=== PATIENT | female | born 1950 | race Caucasian/White ===

== ENCOUNTER 2022-09-21 15:02 | Emergency (ER) | payer MEDICARE, SELFPAY ==
[2022-09-21 15:05] VITALS: BP 116/74; PULSE 109; RESP 18; TEMP 36.3; O2SAT 94; BMI 29.1
--- NOTE | 2022-09-21 15:31 | CRLHL7_ITS ---
For Patients: As a result of the Century Cures Act, medical imaging exams and procedure reports are released immediately into your electronic medical record. You may view this report before your referring provider. If you have questions, please contact your health care provider. Indication: Fall Comparison: None available. Technique: Standing AP, lateral, and sunrise views of the right knee were obtained Findings: There is no displaced fracture or dislocation. Moderate to severe degenerative changes worse in the medial and patellofemoral compartments with loss of joint space and marginal osteophyte formation. There is moderate tibial spine spurring. There is a small suprapatellar joint effusion. There is mild prepatellar soft tissue swelling. Impression: Moderate to severe tricompartmental degenerative changes worst in the medial and patellar compartments with a small suprapatellar joint effusion. Dictated by Marco Delacruz MD @ 09/21/2022 4:28:05 PM (Electronically Signed)
--- NOTE | 2022-09-21 15:37 | CRLHL7_ITS ---
For Patients: As a result of the Century Cures Act, medical imaging exams and procedure reports are released immediately into your electronic medical record. You may view this report before your referring provider. If you have questions, please contact your health care provider. Indication: Fall Comparison: None available. Technique: AP, Lateral, and Oblique views right ankle were obtained Findings: There is displaced fracture of the distal fibula. The ankle mortise is symmetrical. The talar dome is smooth and intact. The joint spaces are otherwise grossly preserved. There is moderate malleolar soft tissue swelling. Impression: Displaced fracture of the distal fibula with moderate malleolar soft tissue swelling. Dictated by Marco Delacruz MD @ 09/21/2022 4:30:44 PM (Electronically Signed)
--- NOTE | 2022-09-21 15:41 | ED.FALL ---
HPI - Fall General Chief Complaint: Fall/Minor Trauma Stated Complaint: Fall Knee and Ankle Injury Time Seen by Provider: 09/21/22 15:03 History of Present Illness HPI Narrative: This 71-year-old female comes in with injury to her right knee and ankle. She fell prior to arrival. She states that she has a hip that loses strength occasionally and this kind of circumstances triggered a fall today. She does have an MRI scheduled for her hip in the next few days. She states that she was eventually able to get up and ambulate. She has some mild tenderness in her knee and some swelling and tenderness over the lateral malleolus of her right ankle. She does not report any other injury. She did not hit her head or have loss of consciousness. Related Data Home Medications Medication Instructions Recorded Confirmed citalopram 40 mg tablet 40 mg PO DAILY 08/07/22 08/07/22 gabapentin 600 mg tablet mg PO 08/07/22 08/07/22 ibuprofen 400 mg tablet mg PO 08/07/22 08/07/22 rosuvastatin 40 mg tablet 40 mg PO DAILY PRN 08/07/22 08/07/22 Previous Rx's Medication Instructions Recorded Cam Walker #1 ea 09/21/22 Crutches- Adult #1 ea 09/21/22 hydrocodone 5 mg-acetaminophen 325 1 tab PO Q4-6H PRN pain #15 tabs 09/21/22 mg tablet Allergies Allergy/AdvReac Type Severity Reaction Status Date / Time No Known Drug Allergies Allergy Verified 09/21/22 15:05 Review of Systems Status of ROS: Reports: 10 or more systems reviewed and unremarkable except as noted in History and below Narrative: Constitutional: No fevers, no weight gain or loss. Eyes: No discharge. No vision changes. HENT: No congestion, no sore throat, no ear pain. Cardiovascular: No chest pain, no palpitations. Respiratory: No shortness of breath, no wheezes, no cough. Gastrointestinal: No abdominal pain, no vomiting, no diarrhea. Genitourinary: No dysuria, no hematuria. Musculoskeletal: Right knee and ankle pain from injury as described above. Skin: No rashes, no pruritis. Neurological: No dizziness, weakness, sensory change, speech change. Endo/Heme/Allergies: No bruising or bleeding. No polydipsia. Pysch: no suicidality, no anxiety, no insomnia. All other systems reviewed and are negative. [facility] Medical History (Updated 09/21/22 @ 17:03 by Basil Almanzar MD) Pneumonia ?J18.9 - Pneumonia, unspecified organism (ICD-10) URI (upper respiratory infection) ?J06.9 - Acute upper respiratory infection, unspecified (ICD-10) Social History Smoking Status: Former smoker Do you use any of these nicotine containing products: E-Cigarettes Second hand tobacco smoke exposure: No How often do you have a drink containing alcohol: 4 or more times a week How many standard drinks containing alcohol do you have on a typical day: 3 or 4 How often do you have six or more drinks on one occasion: Never AUDIT-C Alcohol total score: 5 Non-prescribed substance use: denies use Exam Narrative: Exam Narrative: Constitutional: Well-developed, well-nourished, no acute distress. HEENT: Normocephalic, atraumatic. Neck: Normal range of motion. Nontender. Supple. Heart: Regular. No murmurs. Normal rate. Intact distal pulses. Lungs: Clear to auscultation. No chest discomfort. No wheezes, rhonchi, or rales. Abdomen: Normal bowel sounds. Nontender. No rebound tenderness. Genitalia: Deferred. Back: No midline tenderness. Normal range of motion. Extremities: Small abrasion over the right knee. No effusion or sign of deformity. Right ankle has swelling over the lateral malleolus. No joint effusion or ligament instability. Skin: Intact. No rash. Warm. No erythema or pallor. Neurologic: No altered sensation. No weakness. Alert and oriented. Psychiatric: No suicidality. No anxiety or depression. No insomnia. Nursing notes and vitals signs are reviewed. Const: Vital Signs, click to edit/add: Vital Signs - 24 hr 09/21/22 15:05 Temperature 97.3 F L Pulse Rate [Right Pulse Oximeter] 109 H Respiratory Rate 18 Blood Pressure [Le ft Upper Arm] 116/74 Pulse Oximetry 94 Oxygen Delivery Me thod Room Air Course Vital Signs Vital signs: Initial Vital Signs Temperature 97.3 F L 09/21/22 15:05 Temperature Source Temporal Artery Scan 09/21/22 15:05 Pulse Rate 109 H 09/21/22 15:05 Pulse Rhythm Regular 09/21/22 15:05 Pulse Strength 3+ Normal 09/21/22 15:05 Respiratory Rate 18 09/21/22 15:05 Blood Pressure 116/74 09/21/22 15:05 Blood Pressure Mean 88 09/21/22 15:05 Blood Pressure Position Sitting 09/21/22 15:05 Pulse Oximetry 94 09/21/22 15:05 Oxygen Delivery Method Room Air 09/21/22 15:05 Vital Signs Temperature 97.3 F L 09/21/22 15:05 Pulse Rate 109 H 09/21/22 15:05 Respiratory Rate 18 09/21/22 15:05 Blood Pressure 116/74 09/21/22 15:05 Pulse Oximetry 94 09/21/22 15:05 Oxygen Delivery Method Room Air 09/21/22 15:05 Temperature 97.3 F L 09/21/22 15:05 Pulse Rate 109 H 09/21/22 15:05 Respiratory Rate 18 09/21/22 15:05 Blood Pressure 116/74 09/21/22 15:05 Pulse Oximetry 94 09/21/22 15:05 Oxygen Delivery Method Room Air 09/21/22 15:05 MDM - Fall MDM Narrative Medical decision making narrative: This patient comes in for evaluation of injuries from a fall that occurred prior to arrival. X-ray images are acquired of the right knee and right ankle. The right knee shows no acute findings but the right ankle does have a minimally displaced fracture of the distal fibula. Patient was placed in a Cam walker boot and provided crutches for ambulation. I advised her to follow-up with orthopedic clinic next week. Imaging Data XR R Knee: Radiologist's impression: Moderate to severe tricompartmental degenerative changes worst in the medial and patellar compartments with a small suprapatellar joint effusion. XR R Ankle: Radiologist's impression: Displaced fracture of the distal fibula with moderate malleolar soft tissue swelling. Discharge Plan Discharge Clinical Impression: Ankle fracture, right Patient Disposition: Home, Self-Care Condition: Unchanged Additional Instructions: Wear boot for ambulating. Use crutches as needed. Follow-up with orthopedic clinic. Call [phone] for appointment. Prescriptions: New hydrocodone-acetaminophen 5-325 mg tablet 1 tab PO Q4-6H PRN (Reason: pain) Qty: 15 0RF (DME) Cam Walker Misc See Rx Instructions .ROUTE .MEDSUPPLY Qty: 1 0RF Rx Instructions: As directed (DME) Crutches- Adult Misc See Rx Instructions .ROUTE .MEDSUPPLY Qty: 1 0RF Rx Instructions: As directed No Action rosuvastatin 40 mg tablet 40 mg PO DAILY PRN gabapentin 600 mg tablet PO citalopram 40 mg tablet 40 mg PO DAILY ibuprofen 400 mg tablet PO Follow Up/Referrals: Jodee Yee [Primary Care Provider] - Stand Alone Forms: [employer] Info Instructions
--- NOTE | 2022-09-21 17:53 | ED.NURSE ---
per dr keen stated she was ok to drive herself to home. was fitted with crutches and was able to use the crutches. she will call her children to help.
== END 2022-09-21 17:52 | disposition home or self-care (01) ==
PROVIDERS: Emergency Provider Emergency Medicine Emergency Medical Services; PCP Internal Medicine
DX: S82.891A Other fracture of right lower leg, initial encounter for closed fracture (principal); W18.30XA Fall on same level, unspecified, initial encounter
CPT/HCPCS: 29505; 73562; 73610; 99284; 99285

== ENCOUNTER 2022-10-18 11:53 | Outpatient (CLI) | payer MEDICARE, SELFPAY | END 2022-10-18 11:54 | disposition home or self-care (01) | LOC: AMB 10-19 09:04 | PROVIDERS: PCP Internal Medicine; Visit Provider Family Medicine | DX: R07.81 Pleurodynia (principal) | CPT/HCPCS: A0425; A0429 ==

== ENCOUNTER 2022-10-18 12:25 | Observation (INO) | payer MEDICARE, SELFPAY ==
[2022-10-18] VITALS (12 sets, daily range): BP systolic 109–134; BP diastolic 60–75; PULSE 79–108; RESP 18–24; TEMP 36.6–37.1; O2SAT 90–93; BMI 32.0
--- NOTE | 2022-10-18 12:56 | CRLHL7_ITS ---
For Patients: As a result of the Century Cures Act, medical imaging exams and procedure reports are released immediately into your electronic medical record. You may view this report before your referring provider. If you have questions, please contact your health care provider. INDICATION: Shortness of breath, severe left-sided chest pain. Recent pneumonia.. TECHNIQUE: CT chest PE was acquired with 95 cc Isovue 370 IV contrast. COMPARISON: None. FINDINGS: Heart and vasculature: Contrast opacification of the pulmonary arterial tree is adequate. Small pulmonary embolus identified bridging within the right main pulmonary artery into a right lower lobe segmental branch as well as a right upper lobe segmental branch ().. Heart size within normal limits. Normal caliber ascending thoracic aorta. Mild enlargement of the bilateral pulmonary arteries, can be seen in the setting of pulmonary hypertension. Coronary artery calcifications are noted. Aortic arch calcifications. Lungs and pleura: Left lingular and lower lobe peripheral linear opacities likely atelectasis. Left-sided small pleural effusion with adjacent compressive atelectasis. No pleural thickening, or pneumothorax. Lymph nodes/mediastinum: No mediastinal, hilar, or axillary adenopathy. Prominent left hilar lymph nodes. Chest wall: No masses. Upper abdomen: No acute or significant findings. Small hiatal hernia. Bones: Unremarkable for age. IMPRESSION: Small right-sided pulmonary embolus involving a right lower lobe segmental branch and right upper lobe segmental branch. Left lower lobe linear opacities likely atelectasis and resolving pneumonia. Small left-sided pleural effusion with adjacent compressive atelectasis. Please note that all CT scans at this facility use dose modulation, iterative reconstruction, and/or weight-based dosing when appropriate to reduce radiation dose to as low as reasonably achievable. Dictated by John Briones MD @ 10/18/2022 3:34:07 PM (Electronically Signed)
--- NOTE | 2022-10-18 13:15 | ED.CHESTPAIN ---
HPI - Chest Pain General Date Seen: 10/18/22 Chief Complaint: Shortness of Breath/Dyspnea Stated Complaint: Rib pain Time Seen by Provider: 10/18/22 12:39 Source: patient and EMS Mode of arrival: EMS Limitations: no limitations History of Present Illness HPI narrative: Patient is a 71-year-old female who presents here with left-sided chest discomfort, for the last 2-3 days. She describes over the left side of her chest, radiating from just underneath her breast. Whenever she takes a deep breath in or moves or twists it gets worse, she does not report any falls or injury, she notes that she was in the garden pulling some weeds but does remember anything going on with that. She has been wearing a cast on her right ankle, for the last 4 weeks secondary to an ankle fracture that is being treated non operatively. She does not have a history of previous DVTs pulmonary emboli is on no anticoagulants. She does endorse some pleuritic pain when she takes a deep breath in, there is no radiation to her neck back or shoulders associated with this and she does feel little bit more short of breath. She is not on chronic oxygen, she did have a fever up to 102 last night she took. And a slight cough associated with this she has had no nausea vomiting. She has a past history of heart disease with a previous stent placement number of years ago, is been stable since, denies any exertional dyspnea associated with this. She further does not recognize any swelling of her legs bilaterally. Did not take any Tylenol ibuprofen or any other agents to mitigate the discomfort and came in by ambulance today to be seen. 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 MD complaint: chest pain Pertinent past history: coronary artery disease, prior [place] and [employer] Onset (ago): day(s) (3) Timing of current episode: constant Onset: awoke with symptoms Pain location: left chest Pain radiation: none Severity: severe Quality: sharp Relieving factors: remaining still Exacerbating factors: inspiration, palpation and movement Context: recent immobilization and trauma/injury Associated symptoms: fever and cough Treatment prior to arrival: none Risk Factors Coronary artery disease risk factors: smoking history and family history of CAD before age 50 Pulmonary embolism risk factors: clotting disorder and immobilization Related Data On Oral Contraceptives: No Home Medications Medication Instructions Recorded Confirmed citalopram 40 mg tablet 40 mg PO DAILY 08/07/22 08/07/22 gabapentin 600 mg tablet mg PO 08/07/22 08/07/22 ibuprofen 400 mg tablet mg PO 08/07/22 08/07/22 rosuvastatin 40 mg tablet 40 mg PO DAILY PRN 08/07/22 08/07/22 Previous Rx's Medication Instructions Recorded Cam Walker #1 ea 09/21/22 Crutches- Adult #1 ea 09/21/22 hydrocodone 5 mg-acetaminophen 325 1 tab PO Q4-6H PRN pain #15 tabs 09/21/22 mg tablet Allergies Allergy/AdvReac Type Severity Reaction Status Date / Time No Known Drug Allergies Allergy Verified 10/18/22 12:33 Review of Systems Status of ROS Reports: 10 or more systems reviewed and unremarkable except as noted in History and below [facility] Medical History Pneumonia ?J18.9 - Pneumonia, unspecified organism (ICD-10) URI (upper respiratory infection) ?J06.9 - Acute upper respiratory infection, unspecified (ICD-10) Social History Smoking Status: Former smoker Do you use any of these nicotine containing products: E-Cigarettes Second hand tobacco smoke exposure: No How often do you have a drink containing alcohol: 4 or more times a week How many standard drinks containing alcohol do you have on a typical day: 3 or 4 How often do you have six or more drinks on one occasion: Never AUDIT-C Alcohol total score: 5 Non-prescribed substance use: denies use Exam Narrative Exam Narrative: Patient is in room 5 she appears to be in some mild distress, she is splinting on the left side when she breeze twists or turns. Speaking to me normally in full sentences pupils equal round reactive to light there is no scleral icterus redness TMs are normal oropharynx is normal, cranial nerves 3-12 are normal, neck is supple full range of motion, she has some crackles in her left base on inspiration and expiration. There is no palpable tenderness noted. Over the posterior part of her chest but on the anterior portion from her mid axillary line around to her front is tender just underneath her ribs there is no redness associated with this or any tactile fremitus. Or crunching to suggest subcutaneous at air. Heart sounds are normal, there is no wheezing. Abdomen is soft there is no guarding no past splenomegaly, she has the below leg right circular cast. With no swelling or edema noted. Const Vital Signs, click to edit/add: Vital Signs - 24 hr 10/18/22 12:28 Temperature 98.7 F Pulse Rate [Right Pulse Oximeter] 108 H Respiratory Rate 20 Blood Pressure [Right Forearm] 129/72 Pulse Oximetry 93 Oxygen Delivery Method Room Air Documenting provider has reviewed patient's vital signs: yes Course Course Hospital Course: Discussed with the patient explained the diagnosis to her, I do believe she has a pulmonary embolus the hip appears to be in the right upper lobe but there may be a component left lower lobe that clearly is some pneumonia there. She should have now resolved from the previous pneumonia greater than 2 months ago. There may be a a bit of pulmonary infarction there that were just not seeing within the infiltrate. We will start her on Eliquis, along with the Rocephin 2 g IV here. She is accepted by for hospitalization, secondary to her pain, pulmonary embolism, and pneumonia. Vital Signs Vital signs: Initial Vital Signs Temperature 98.7 F 10/18/22 12:28 Temperature Source Temporal Artery Scan 10/18/22 12:28 Pulse Rate 108 H 10/18/22 12:28 Pulse Rhythm Regular 10/18/22 12:28 Pulse Strength 3+ Normal 10/18/22 12:28 Respiratory Rate 20 10/18/22 12:28 Blood Pressure 129/72 10/18/22 12:28 Blood Pressure Mean 91 10/18/22 12:28 Blood Pressure Position Supine 10/18/22 12:28 Pulse Oximetry 93 10/18/22 12:28 Oxygen Delivery Method Room Air 10/18/22 12:28 Vital Signs Temperature 98.7 F 10/18/22 12:28 Pulse Rate 108 H 10/18/22 12:28 Respiratory Rate 20 10/18/22 12:28 Blood Pressure 129/72 10/18/22 12:28 Pulse Oximetry 93 10/18/22 12:28 Oxygen Delivery Method Room Air 10/18/22 12:28 Temperature 98.7 F 10/18/22 12:28 Pulse Rate 108 H 10/18/22 12:28 Respiratory Rate 20 10/18/22 12:28 Blood Pressure 129/72 10/18/22 12:28 Pulse Oximetry 93 10/18/22 12:28 Oxygen Delivery Method Room Air 10/18/22 12:28 MDM - Chest Pain MDM Narrative Medical decision making narrative: During the evaluation of this patient I considered multiple differential diagnosis is. The life-threatening differential diagnosis include coronary disease/[place], pulmonary embolism, pneumothorax, pneumonia, and aortic dissection. Other differential diagnosis included but were not limited to pericarditis, myocarditis, chest wall pain, GERD, esophageal rupture, rib fracture contusion, pleurisy, as well as other etiologies. Medical Records Data Attestation: I reviewed the patient's medical records. Lab Data Attestation: I reviewed the patient's lab results. Lab results narrative: White count is normal, hemoglobin normal, platelet count is very low at 68. Consistent with her thrombocytopenia, she tells me she usually runs between 50 and 88, D-dimer is elevated at 1.56, electrolytes are all normal. Glucose elevated at 129-triple screen for COVID influenza and RSV. Point of care troponin 0.1 . Labs: Lab Results 10/18/22 10/18/22 10/18/22 Range/Units 12:56 13:09 13:25 WBC 8.28 (4.50-11.00) K/uL RBC 4.23 (4.00-5.20) m/uL Hgb 13.8 (12.0-16.0) gm/dL Hct 40.2 (33.0-51.0) % MCV 95 (80-100) fL MCH 33 (26-34) pg MCHC 34 (32-36) gm/dL RDW Coeff of Patrick 13.0 (11.5-15.5) % Plt Count 68 L (140-440) K/uL Neut % (Auto) 80.5 H (42.0-72.0) % Lymph % (Auto) 10.9 L (20-44) % Ashley % (Auto) 8.1 (0.0-11.0) % Eos % (Auto) 0.0 (0.0-7.0) % Baso % (Auto) 0.4 (0.0-3.0) % Neut # (Auto) 6.70 (1.7-7.0) K/uL Lymph # (Auto) 0.90 (0.90-2.90) K/uL Ashley # (Auto) 0.70 (0.00-0.90) K/UL Eos # (Auto) 0.00 (0.00-0.50) K/uL Baso # (Auto) 0.03 (0.00-0.30) K/uL INR 1.09 (0.91-1.10) APTT 31 (23-33) Seconds D-Dimer Quant (PE/DVT) 1.56 H (0.00-0.50) ug/ml Sodium 136 (135-149) mmol/L Potassium 3.8 (3.6-5.1) mmol/L Chloride 101 (96-114) mmol/L Carbon Dioxide 21 (20-32) mmol/L BUN 11 (7-30) mg/dL Creatinine 1.0 (0.5-1.5) mg/dL Estimated Creat Clear 45.76 Estimated GFR 60 ml/min Glucose 129 H (60-115) mg/dL Calcium 9.3 (8.4-10.6) mg/dL C-Reactive Protein 8.5 H (0.5-1.0) mg/dL NT-Pro-B Natriuret Pep 245 pg/mL SARS-CoV-2 (PCR) Negative SARS-CoV-2 (Negative) Influenza Type A (PCR) Negative PCR FLU A (Negative) Influenza Type B (PCR) Negative PCR FLU B (Negative) RSV (PCR) Negative PCR RSV (Negative) POC Troponin I 0.01 (0.01-0.04) ng/ml Imaging Data CT scan - chest: Attestation: I have reviewed the pertinent imaging results. My impression: Chest CT shows infiltrates in left base, also with what appears to be a small right-sided pulmonary embolism Radiologist's impression: Patient: ELROY EAGLE Facility:?[facility] Patient ID:?[id number] Site Patient ID:?[id number]. Site :?[id number] Study:?CT Chest Angio 95CC ISOVUE 370-10/18/2022 2:35:53 PM Ordering Physician:Lawrence Gurrola Final Report: INDICATION: Shortness of breath, severe left-sided chest pain. Recent pneumonia.. TECHNIQUE: CT chest PE was acquired with 95 cc Isovue 370 IV contrast. COMPARISON: None. FINDINGS: Heart and vasculature: Contrast opacification of the pulmonary arterial tree is adequate. Small pulmonary embolus identified bridging within the right main pulmonary artery into a right lower lobe segmental branch as well as a right upper lobe segmental branch ().. Heart size within normal limits. Normal caliber ascending thoracic aorta. Mild enlargement of the bilateral pulmonary arteries, can be seen in the setting of pulmonary hypertension. Coronary artery calcifications are noted. Aortic arch calcifications. Lungs and pleura: Left lingular and lower lobe peripheral linear opacities likely atelectasis. Left-sided small pleural effusion with adjacent compressive atelectasis. No pleural thickening, or pneumothorax. Lymph nodes/mediastinum: No mediastinal, hilar, or axillary adenopathy. Prominent left hilar lymph nodes. Chest wall: No masses. Upper abdomen: No acute or significant findings. Small hiatal hernia. Bones: Unremarkable for age. IMPRESSION: Small right-sided pulmonary embolus involving a right lower lobe segmental branch and right upper lobe segmental branch. Left lower lobe linear opacities likely atelectasis and resolving pneumonia. Small left-sided pleural effusion with adjacent compressive atelectasis. Please note that all CT scans at this facility use dose modulation, iterative reconstruction, and/or weight-based dosing when appropriate to reduce radiation dose to as low as reasonably achievable. Dictated by John Briones MD @ 10/18/2022 3:34:07 PM (Electronic Signature) ECG Data Attestation: I personally reviewed and interpreted this ECG as follows: ECG interpretation date: 10/18/22 Interpretation: EKG shows normal sinus rhythm, ST wave depression, with T-wave inversion noted laterally, and anteriorly. Assessment abnormal EKG Discharge Plan Discharge Clinical Impression: Pneumonia, Pulmonary embolism, Chest pain, Chronic idiopathic thrombocytopenia, History of fracture of right ankle Patient Disposition: Admitted As Inpatient Condition: Improved
[2022-10-18] MEDS: MORPHINE 4 MG/ML INJ IVP ×2 (13:24→14:36)
[2022-10-18] MEDS: 0.9 % SODIUM CHLORIDE 1000 ml 1,000 ML IV (13:24)
[2022-10-18 13:32] LABS: Troponin, Point-of-Care* 0.01 ng/ml (0.01-0.04)
[2022-10-18 13:36] LABS: Basophils Absolute Auto 0.03 K/uL (0.00-0.30); Basophils Percent Auto 0.4 % (0.0-3.0); Hematocrit 40.2 % (33.0-51.0); Hemoglobin* 13.8 gm/dL (12.0-16.0); Immature Granulocytes Abs Auto 0.01 K/uL (0.00-0.30); Immature Granulocytes Pct Auto 0.1 %; Lymphocytes Percent Auto 10.9 % (20-44); Mean Corpuscular HGB Conc 34 gm/dL (32-36); Mean Corpuscular Hemoglobin 33 pg (26-34); Mean Corpuscular Volume 95 fL (80-100); Monocytes Percent Auto 8.1 % (0.0-11.0); Neutrophils Percent Auto 80.5 % (42.0-72.0); Platelet Count* 68 K/uL (140-440); Red Blood Count 4.23 m/uL (4.00-5.20); White Blood Count* 8.28 K/uL (4.50-11.00)
[2022-10-18 13:37] LABS: Slide Review Reflex No
[2022-10-18 13:58] LABS: Chloride* 101 mmol/L (96-114); Sodium* 136 mmol/L (135-149)
[2022-10-18 13:59] LABS: INR 1.09 (0.91-1.10); Partial Thromboplastin Time* 31 Seconds (23-33); Potassium* 3.8 mmol/L (3.6-5.1); Prothrombin Time 14.8 Seconds
[2022-10-18 14:01] LABS: Est. Creatinine Clearance* 45.76; Estimated Glomerular Filt Rate 60 ml/min
[2022-10-18 14:02] LABS: Blood Urea Nitrogen* 11 mg/dL (7-30); Calcium* 9.3 mg/dL (8.4-10.6); Carbon Dioxide* 21 mmol/L (20-32); D Dimer Quantitative* 1.56 ug/ml (0.00-0.50); Glucose* 129 mg/dL (60-115)
[2022-10-18 14:05] LABS: C Reactive Protein* 8.5 mg/dL (0.5-1.0)
[2022-10-18 14:11] LABS: NT Pro B Type NatriureticPept* 245 pg/mL
[2022-10-18 14:13] LABS: PCR FLU A Negative PCR FLU A (Negative); PCR FLU B Negative PCR FLU B (Negative); PCR RSV Negative PCR RSV (Negative)
[2022-10-18 14:15] LABS: SARS PCR* Negative SARS-CoV-2 (Negative)
--- NOTE | 2022-10-18 15:42 | PM.IMHP1 ---
Hospitalist- H&P: HPI History of Present Illness Date Seen: 10/18/22 Chief complaint: Rib pain Narrative: Keesha Seaman is a 71 year old female with past medical history of hemochromatosis; ITP, recent right ankle fracture (in cam boot) presenting for evaluation of chest pain. The patient endorses pleuritic chest pain and SOB. Denies fever. Denies hx of DVT/PE. CT PE study showed small right sided PE of RLL and RUL and LLL opacities with resolving PNA. Notable labs included plt of 68K (per patient near her baseline). She follows with Hematology. Additionally following with outpatient Orthopaedics for right ankle fx. In the ED she was started on ceftriaxone/doxycyline+eliquis and admitted for further evaluation. She is on room air. CTPE study Small right-sided pulmonary embolus involving a right lower lobe segmental branch and right upper lobe segmental branch. Left lower lobe linear opacities likely atelectasis and resolving pneumonia. Small left-sided pleural effusion with adjacent compressive atelectasis. Review of Systems Status of ROS: Reports: 10 or more systems reviewed and unremarkable except as noted in History and below [facility] Medical History Pneumonia ?J18.9 - Pneumonia, unspecified organism (ICD-10) URI (upper respiratory infection) ?J06.9 - Acute upper respiratory infection, unspecified (ICD-10) Social History Smoking Status: Former smoker Do you use any of these nicotine containing products: E-Cigarettes Second hand tobacco smoke exposure: No How often do you have a drink containing alcohol: 4 or more times a week How many standard drinks containing alcohol do you have on a typical day: 3 or 4 How often do you have six or more drinks on one occasion: Never AUDIT-C Alcohol total score: 5 Non-prescribed substance use: denies use Meds Home Medications and Allergies Home Medications Medication Instructions Recorded Confirmed Type citalopram 40 mg tablet 40 mg PO DAILY 08/07/22 10/18/22 History gabapentin 600 mg tablet 300 - 600 mg PO BID 08/07/22 10/18/22 History rosuvastatin 40 mg tablet 40 mg PO DAILY 08/07/22 10/18/22 History Allergies Allergy/AdvReac Type Severity Reaction Status Date / Time No Known Drug Allergies Allergy Verified 10/18/22 12:33 Exam Narrative: Exam Narrative: Gen: no acute distress HEENT: NCAT EOMI mmm Neck: Supple CV: RRR normal s1 s2 Lungs: CTAB Abd: Soft,nt, nd Neuro: Alert, oriented, CN grossly intact; nonfocal screening?exam Psych: appropriate affect MSK: age appropriate muscle mass Skin; Warm, dry no rash on face Ext: right LE in cast Const: Vital Signs, click to edit/add: Vital Signs - 24 hr 10/18/22 12:28 Temperature 98.7 F Pulse Rate [Right Pulse Oximeter] 108 H Respiratory Rate 20 Blood Pressure [Ri ght Forearm] 129/72 Pulse Oximetry 93 Oxygen Delivery Me thod Room Air Hospitalist - H&P: Result Labs Labs: Short CBC 10/18/22 Range/Units 13:09 WBC 8.28 (4.50-11.00) K/uL Hgb 13.8 (12.0-16.0) gm/dL Hct 40.2 (33.0-51.0) % Plt Count 68 L (140-440) K/uL BMP 10/18/22 13:09 Sodium 136 Potassium 3.8 Chloride 101 Carbon Dioxide 21 BUN 11 Creatinine 1.0 Glucose 129 H Calcium 9.3 Assessment and Plan Assessment and plan (1) Pulmonary embolism: Status: Acute (2) History of fracture of right ankle: Status: Acute (3) Chronic idiopathic thrombocytopenia: Status: Acute (4) Pneumonia: Status: Acute Plan Assessment: Keesha Seaman is a 71 year old female with past medical history of hemochromatosis; ITP, recent right ankle fracture (in cam boot) presenting for evaluation of chest pain. CT PE study showed small right sided PE of RLL and RUL and LLL opacities with resolving PNA. Notable labs included plt of 68K (per patient near her baseline). She follows with Hematology. Additionally following with outpatient Orthopaedics for right ankle fx. In the ED she was started on ceftriaxone/doxycyline+eliquis and admitted for further evaluation. She is on room air. 1. Acute PE; likely provoked given recent Ankle fx 2. Hx of ITP 3. Hx of Hemochromatosis 4. Rule out PNA 5. Hx of HLD Plan -admit to obs; on room air -echo -tele -venous doppler US LE -continue eliquis -continue ceftriaxone +doxycyline -check procal -pain control -has outpatient Ortho appointment tomorrow Code-Full DVT ppx-on eliquis Dispo-anticipated discharge tomorrow
[2022-10-18] MEDS: APIXABAN 5 MG TABLET 10 MG PO (16:06)
[2022-10-18] MEDS: cefTRIAXone 2 GM in 0.9 % SODIUM CHLORIDE Mini-bag 100 ML IVPB (16:08)
--- NOTE | 2022-10-18 16:28 | CRLHL7_ITS ---
For Patients: As a result of the Century Cures Act, medical imaging exams and procedure reports are released immediately into your electronic medical record. You may view this report before your referring provider. If you have questions, please contact your health care provider. INDICATION: Leg pain and swelling. TECHNIQUE: Ultrasound venous duplex bilateral lower extremity. Compression venous exam was performed using horne-scale, color Doppler, and spectral Doppler analysis. COMPARISON: None. FINDINGS: Deep veins: Sonographic imaging demonstrates the bilateral common femoral, deep femoral, superficial femoral, popliteal, and posterior tibial veins to be fully compressible with normal color Doppler blood flow. However, the right calf veins could not be interrogated due to the presence of a cast. Superficial veins: Greater saphenous vein is fully compressible. No popliteal cyst. IMPRESSION: Normal bilateral lower extremity venous ultrasound, no sign of deep venous thrombosis. Dictated by Dk Farmer MD @ 10/18/2022 6:27:33 PM (Electronically Signed)
[2022-10-18] MEDS: OXYCODONE 5 MG TABLET PO ×2 (16:55→21:12)
[2022-10-18 17:30] LABS: Procalcitonin* 0.08 ng/mL (<0.50)
[2022-10-18] MEDS: GABAPENTIN 300 MG CAPSULE PO (18:19)
[2022-10-18] MEDS: HYDROmorphone 0.5 mg/0.5 ml inj IVP ×2 (18:19→23:49)
--- NOTE | 2022-10-18 19:25 | PC.NURSE ---
Nursing Care Hours: [id number] Pt this shift arrived from ED on stretcher, stated could not get standing weight d/t large cast/boot. Bed scale 192# with boot and cast. Pt able to transfer in and out of bed easily and independently. Using walker for support. U/o dark elijah, encouraged to drink more fluids d/t recent decrease appetite and fluid intake d/t pain. Ate 100% of dinner. rating pain on L lateral chest 4/10 with rest and 10/10 with movement and deep breathing. VSS, 92% RA. Bruising noted on back side of L calf at top of cast. LLL fine crackles, diminished in mid lobe.
[2022-10-18] MEDS: ACETAMINOPHEN 325 MG TABLET 650 MG PO (19:55)
[2022-10-18] MEDS: ROSUVASTATIN CALCIUM 10 MG TABLET 40 MG PO (21:12)
[2022-10-18] MEDS: GABAPENTIN 600 MG TABLET 1200 MG PO (21:12)
[2022-10-18] MEDS: DOXYCYCLINE HYCLATE 100 MG CAPSULE PO (21:12)
[2022-10-18] MEDS: MELATONIN 3 MG TABLET PO (21:27)
[2022-10-18] MEDS: SODIUM CHLORIDE 0.9 % (FLUSH) 10 ML SYRINGE 5 ML IVF (21:28)
--- NOTE | 2022-10-18 22:48 | PC.NURSE ---
End of shift nursing note. Care provided from [id number]. Pt alert and oriented, pleasant and cooperative. Vitals stable, on RA. Up ind in room to bathroom, using walker. Voiding, tolerating PO intake. IV to R AC flushed, patent and saline locked. Grain Merchandiser discussed pain management options with pt. PRN Tylenol and Oxycodone admin for 5/10 pain to rib area. Has call light within reach and uses appropriately.
[2022-10-19] VITALS (9 sets, daily range): BP systolic 102–121; BP diastolic 66–73; PULSE 85–103; RESP 18; TEMP 36.5–36.9; O2SAT 90–94
[2022-10-19] MEDS: OXYCODONE 5 MG TABLET PO ×4 (03:37→22:59)
[2022-10-19] MEDS: ACETAMINOPHEN 325 MG TABLET 650 MG PO ×2 (03:37→21:10)
[2022-10-19] MEDS: APIXABAN 5 MG TABLET 10 MG PO ×2 (06:08→17:31)
--- NOTE | 2022-10-19 06:30 | PC.NURSE ---
Pt alert and oriented x3. Afebrile. Pt reports 6/10 in right back pain, pain managed with PRN medications.?Pt denies SOB, chest pain, and N/V.?Pt is up Ind in room tolerating a regular diet, and voiding. Pt slept intermittently throughout most of night. ?
[2022-10-19 06:31] LABS: Basophils Absolute Auto 0.04 K/uL (0.00-0.30); Basophils Percent Auto 0.6 % (0.0-3.0); Eosinophils Absolute Auto 0.09 K/uL (0.00-0.50); Eosinophils Percent Auto 1.4 % (0.0-7.0); Hematocrit 35.1 % (33.0-51.0); Immature Granulocytes Abs Auto 0.01 K/uL (0.00-0.30); Immature Granulocytes Pct Auto 0.2 %; Lymphocytes Absolute Auto 1.33 K/uL (0.90-2.90); Lymphocytes Percent Auto 21.2 % (20-44); Mean Corpuscular HGB Conc 34 gm/dL (32-36); Mean Corpuscular Hemoglobin 33 pg (26-34); Mean Corpuscular Volume 95 fL (80-100); Monocytes Percent Auto 9.1 % (0.0-11.0); Neutrophils Absolute Auto 4.23 K/uL (1.7-7.0); Neutrophils Percent Auto 67.5 % (42.0-72.0); Platelet Count* 102 K/uL (140-440); RDW Coefficient of Variation % 12.8 % (11.5-15.5); Red Blood Count 3.68 m/uL (4.00-5.20); White Blood Count* 6.27 K/uL (4.50-11.00)
[2022-10-19 06:34] LABS: Slide Review Reflex No
[2022-10-19 06:48] LABS: Chloride* 103 mmol/L (96-114)
[2022-10-19 06:49] LABS: Potassium* 4.1 mmol/L (3.6-5.1); Sodium* 139 mmol/L (135-149)
[2022-10-19 06:51] LABS: Creatinine* 0.7 mg/dL (0.5-1.5); Est. Creatinine Clearance* 45.76; Estimated Glomerular Filt Rate 92 ml/min
[2022-10-19 06:52] LABS: Blood Urea Nitrogen* 10 mg/dL (7-30); Calcium* 8.5 mg/dL (8.4-10.6); Carbon Dioxide* 30 mmol/L (20-32); Glucose* 116 mg/dL (60-115)
[2022-10-19 07:06] LABS: Procalcitonin* 0.09 ng/mL (<0.50)
[2022-10-19] MEDS: CITALOPRAM HYDROBROMIDE 20 MG TABLET 40 MG PO (08:06)
[2022-10-19] MEDS: SODIUM CHLORIDE 0.9 % (FLUSH) 10 ML SYRINGE 5 ML IVF ×3 (08:07→21:11)
[2022-10-19] MEDS: DOXYCYCLINE HYCLATE 100 MG CAPSULE PO ×2 (08:07→21:09)
--- NOTE | 2022-10-19 10:24 | CRLHL7_ITS ---
For Patients: As a result of the Century Cures Act, medical imaging exams and procedure reports are released immediately into your electronic medical record. You may view this report before your referring provider. If you have questions, please contact your health care provider. INDICATION: LT sided chest pain, Known PE and pneumonia. TECHNIQUE: Chest 1 view COMPARISON: CT 10/18/2022 FINDINGS: Left basilar parenchymal densities with small left pleural effusion again noted. Right lung relatively clear. No pneumothorax. Mediastinum unchanged. IMPRESSION: Similar appearance of the chest with left basilar airspace densities and small left pleural effusion. Dictated by Rufus Sanchez MD @ 10/19/2022 11:28:33 AM (Electronically Signed)
[2022-10-19 10:51] LABS: Troponin I* < 0.01 ng/mL (0.01-0.04)
--- NOTE | 2022-10-19 12:35 | P.IMPN_ITS ---
Progress Note: A&P Assessment and plan (1) Pulmonary embolism: Problem details: - diagnosed 10/18, recent ankle fracture and immobilization - Eliquis 10/18 Status: Acute (2) Chest pain: Problem details: - left sided, source unclear (?effusion). No acute changes on EKG or telemetry, troponin negative - TTE 10/19, continue to follow Status: Acute (3) History of fracture of right ankle: Problem details: - routine outpatient Ortho f/u Status: Acute (4) Chronic idiopathic thrombocytopenia: Problem details: - Sees Hematology as an outpatient, stable - no evidence of acute bleeding Status: Acute (5) Pneumonia: Problem details: - notes having this approximately 1 month ago; possible recurrence on imaging. Notably, procalcitonin is negative - on ceftriaxone and doxycycline (10/18) Status: Acute (6) Hemochromatosis: Problem details: - quiescent Status: Acute Plan - await TTE results - Eliquis for ppx - RT referral given effusion and discomfort - home when improved/stable, possibly as early as tomorrow Subjective Date Seen: 10/19/22 Interval history: Keesha was admitted yesterday for pulmonary embolus in the right lung. She had a recent right ankle fracture and has been immobilized. She continues to have pain in her left chest (PEs notably on the right), which has been limiting. Chest x-ray today reveals no change to left-sided pleural effusion (recent left- sided pneumonia). Troponin today is negative. TTE is pending. Exam Narrative: Exam Narrative: GEN: Alert and oriented, answering questions appropriately and nontoxic in appearance. HEENT: Normal external ears, EOMIs bilaterally, no scleral icterus CV: RRR, No concerning murmurs R: Rales left base, air movement decreased. No wheezing. + discomfort on left chest during exam, no crepitus Ext: Wearing cast on right lower extremity Skin: No concerning skin lesions or rashes on exposed skin Neuro: No focal deficits, no resting tremor, gait not observed Psych: Appropriate Const: Vital Signs, click to edit/add: Vital Signs - 24 hr 10/18/22 13:36 10/18/22 14:00 10/18/22 15:00 Temperature Pulse Rate Pulse Rate [Right Pulse Oximeter] 89 89 89 Respiratory Rate 20 23 20 Blood Pressure [Le ft Arm] Blood Pressure [Ri ght Arm] 131/75 Blood Pressure [Ri ght Forearm] 124/72 110/60 Pulse Oximetry 90 91 90 Oxygen Delivery Me thod Room Air Room Air 10/18/22 15:30 10/18/22 16:00 10/18/22 16:26 Temperature Pulse Rate Pulse Rate [Right Pulse Oximeter] 92 87 89 Respiratory Rate 20 20 20 Blood Pressure [Le ft Arm] Blood Pressure [Ri ght Arm] Blood Pressure [Ri ght Forearm] 109/66 116/68 119/65 Pulse Oximetry 90 91 91 Oxygen Delivery Me thod Room Air Room Air Room Air 10/18/22 16:59 10/18/22 16:59 10/18/22 19:00 Temperature 98.1 F 98.5 F Pulse Rate Pulse Rate [Right Pulse Oximeter] 82 89 Respiratory Rate 24 24 18 Blood Pressure [Le ft Arm] 134/73 Blood Pressure [Ri ght Arm] 120/73 Blood Pressure [Ri ght Forearm] Pulse Oximetry 93 93 90 Oxygen Delivery Me thod Room Air Room Air Room Air 10/18/22 20:49 10/18/22 23:00 10/18/22 23:45 Temperature Pulse Rate 85 79 Pulse Rate [Right Pulse Oximeter] 85 Respiratory Rate 20 Blood Pressure [Le ft Arm] Blood Pressure [Ri ght Arm] Blood Pressure [Ri ght Forearm] Pulse Oximetry Oxygen Delivery Me thod 10/18/22 23:45 10/19/22 03:40 10/19/22 07:10 Temperature 97.9 F 98.1 F Pulse Rate 85 Pulse Rate [Right Pulse Oximeter] 85 88 Respiratory Rate 20 18 Blood Pressure [Le ft Arm] 119/73 112/68 Blood Pressure [Ri ght Arm] Blood Pressure [Ri ght Forearm] Pulse Oximetry 90 91 Oxygen Delivery Me thod Room Air Room Air 10/19/22 07:30 10/19/22 08:00 10/19/22 08:00 Temperature 98.4 F Pulse Rate Pulse Rate [Right Pulse Oximeter] 89 89 89 Respiratory Rate 18 18 18 Blood Pressure [Le ft Arm] 116/69 Blood Pressure [Ri ght Arm] Blood Pressure [Ri ght Forearm] Pulse Oximetry 91 Oxygen Delivery Me thod Room Air 10/19/22 11:19 Temperature 98.3 F Pulse Rate Pulse Rate [Right Pulse Oximeter] 94 Respiratory Rate 18 Blood Pressure [Le ft Arm] 102/66 Blood Pressure [Ri ght Arm] Blood Pressure [Ri ght Forearm] Pulse Oximetry 94 Oxygen Delivery Me thod Room Air Labs Labs: Laboratory Results - last 24 hr 10/18/22 10/18/22 10/18/22 12:56 13:09 13:25 WBC 8.28 RBC 4.23 Hgb 13.8 Hct 40.2 MCV 95 MCH 33 MCHC 34 RDW Coeff of Patrick 13.0 Plt Count 68 L Neut % (Auto) 80.5 H Lymph % (Auto) 10.9 L Jennings % (Auto) 8.1 Eos % (Auto) 0.0 Baso % (Auto) 0.4 Neut # (Auto) 6.70 Lymph # (Auto) 0.90 Jennings # (Auto) 0.70 Eos # (Auto) 0.00 Baso # (Auto) 0.03 INR 1.09 APTT 31 D-Dimer Quant (PE/DVT) 1.56 H Sodium 136 Potassium 3.8 Chloride 101 Carbon Dioxide 21 BUN 11 Creatinine 1.0 Estimated Creat Clear 45.76 Estimated GFR 60 Glucose 129 H Calcium 9.3 Troponin I C-Reactive Protein 8.5 H NT-Pro-B Natriuret Pep 245 Procalcitonin 0.08 SARS-CoV-2 (PCR) Negative SARS-CoV-2 Influenza Type A (PCR) Negative PCR FLU A Influenza Type B (PCR) Negative PCR FLU B RSV (PCR) Negative PCR RSV Lab Acknowledgement POC Troponin I 0.01 10/18/22 10/19/22 16:29 05:43 WBC 6.27 RBC 3.68 L Hgb 12.0 Hct 35.1 MCV 95 MCH 33 MCHC 34 RDW Coeff of Patrick 12.8 Plt Count 102 L Neut % (Auto) 67.5 Lymph % (Auto) 21.2 Jennings % (Auto) 9.1 Eos % (Auto) 1.4 Baso % (Auto) 0.6 Neut # (Auto) 4.23 Lymph # (Auto) 1.33 Jennings # (Auto) 0.60 Eos # (Auto) 0.09 Baso # (Auto) 0.04 INR APTT D-Dimer Quant (PE/DVT) Sodium 139 Potassium 4.1 Chloride 103 Carbon Dioxide 30 BUN 10 Creatinine 0.7 Estimated Creat Clear 45.76 Estimated GFR 92 Glucose 116 H Calcium 8.5 Troponin I < 0.01 L C-Reactive Protein NT-Pro-B Natriuret Pep Procalcitonin 0.09 SARS-CoV-2 (PCR) Influenza Type A (PCR) Influenza Type B (PCR) RSV (PCR) Lab Acknowledgement Test Added Test Added POC Troponin I
[2022-10-19] MEDS: HYDROmorphone 0.5 mg/0.5 ml inj IVP (14:22)
--- NOTE | 2022-10-19 14:43 | RESP.RT ---
Pt seen at request of provider. Pt reports Left sided pain when she breaths deep, coughs, or sometimes moves. PEs in R lung. BS on Left side, absent in LLL, (effusion and atelectasis) Clear in Right upper lobe. No crepitus or discoloring noted. Continue to monitor and encourage deep breathing. On RA, SPO2 94%.
--- NOTE | 2022-10-19 14:43 | PC.NURSE ---
end of shift. pt has been pleasant. pain in the left chest 4-12/22. she is getting po oxycodone with little relief. she got IV Dilaudid when pain was a 11/21. talked to md about pain. waiting for orders. she has a large cast/boot. from a ankle fx 1 month ago. she she said pain meds did not help then either. Pt able to transfer independently.? she is up with a walker. she is eating, drinking and voiding. Bruising noted on back side of L calf at top of cast.? LLL fine crackles, diminished in mid lobe.?RT was in to see. Echo today and x ray was for today.
[2022-10-19] MEDS: HYDROmorphone 2 MG TABLET PO (17:20)
[2022-10-19] MEDS: cefTRIAXone 1 GM in 0.9 % SODIUM CHLORIDE Mini-bag 100 ML IVPB (17:21)
[2022-10-19] MEDS: GABAPENTIN 300 MG CAPSULE PO (17:30)
[2022-10-19] MEDS: ROSUVASTATIN CALCIUM 10 MG TABLET 40 MG PO (21:09)
[2022-10-19] MEDS: GABAPENTIN 600 MG TABLET 1200 MG PO (21:09)
[2022-10-19] MEDS: MELATONIN 3 MG TABLET PO (21:10)
--- NOTE | 2022-10-19 23:27 | PC.NURSE ---
End of Shift Summary: Pt pleasant and cooperative throughout shift. Pain ranging between 5-8/10, improved with PO dilauded. Pt utilizes walker in room, SBA. Pt lives at home alone with good support system from family.
[2022-10-20] MEDS: HYDROmorphone 2 MG TABLET PO (02:24)
[2022-10-20 02:38] VITALS: BP 129/71; PULSE 83; RESP 16; O2SAT 90
[2022-10-20] MEDS: APIXABAN 5 MG TABLET 10 MG PO (05:57)
[2022-10-20 06:34] LABS: Basophils Percent Auto 0.8 % (0.0-3.0); Eosinophils Percent Auto 3.7 % (0.0-7.0); Hematocrit 35.6 % (33.0-51.0); Hemoglobin* 12.2 gm/dL (12.0-16.0); Immature Granulocytes Pct Auto 0.3 %; Lymphocytes Percent Auto 34.2 % (20-44); Mean Corpuscular HGB Conc 34 gm/dL (32-36); Mean Corpuscular Hemoglobin 32 pg (26-34); Mean Corpuscular Volume 95 fL (80-100); Platelet Count* 118 K/uL (140-440); RDW Coefficient of Variation % 12.8 % (11.5-15.5); Red Blood Count 3.76 m/uL (4.00-5.20); White Blood Count* 3.77 K/uL (4.50-11.00)
[2022-10-20 06:36] LABS: Slide Review Reflex No
[2022-10-20 06:40] LABS: Chloride* 102 mmol/L (96-114)
[2022-10-20 06:41] LABS: Albumin* 3.6 g/dL (3.3-5.0); Potassium* 3.3 mmol/L (3.6-5.1); Sodium* 139 mmol/L (135-149)
[2022-10-20 06:43] LABS: Bilirubin Total* 0.6 mg/dL (0.1-1.5); Carbon Dioxide* 31 mmol/L (20-32); Creatinine* 0.7 mg/dL (0.5-1.5); Est. Creatinine Clearance* 45.76; Estimated Glomerular Filt Rate 92 ml/min; Total Protein* 6.7 g/dL (6.0-8.3)
[2022-10-20 06:44] LABS: Alanine Aminotransferase* 23 U/L (4-35); Alkaline Phosphatase* 118 U/L (40-150); Aspartate Amino Transferase* 28 U/L (12-35); Blood Urea Nitrogen* 9 mg/dL (7-30); Glucose* 105 mg/dL (60-115)
[2022-10-20 07:00] VITALS: BP 140/83; PULSE 84; PULSE 93; RESP 16; TEMP 36.9; O2SAT 92
[2022-10-20 07:01] LABS: Procalcitonin* 0.08 ng/mL (<0.50)
[2022-10-20 07:03] LABS: Troponin I* < 0.01 ng/mL (0.01-0.04)
--- NOTE | 2022-10-20 07:09 | PC.NURSE ---
Pt A&O. Ind in room. VSS and on room air w/ sats >90%. Pt denies SOB. PRN diluted given for pain control. Pt stated adequate relief.
[2022-10-20] MEDS: DOXYCYCLINE HYCLATE 100 MG CAPSULE PO (08:33)
[2022-10-20] MEDS: SODIUM CHLORIDE 0.9 % (FLUSH) 10 ML SYRINGE 5 ML IVF (08:34)
[2022-10-20] MEDS: CITALOPRAM HYDROBROMIDE 20 MG TABLET 40 MG PO (08:34)
[2022-10-20 11:12] VITALS: PULSE 84; RESP 16; TEMP 36.9
--- NOTE | 2022-10-20 11:31 | PC.NURSE ---
Discharge: Patient pleasant and cooperative. Patient vitally stable, lungs diminished with course crackles on the left side, BS WNL, IV removed, catheter intact. Patient SBA/walker. Patient rated lower chest pain 5/10, did not request any pain medication. Patient urinating and tolerating regular diet. Patient signed belongings sheet and discharge form. Patient had no further questions regarding discharge. Patient left the floor by wheelchair to home at 1129.
--- NOTE | 2022-10-20 11:55 | P.DS_ITS ---
DS: Providers Provider Date Seen: 10/20/22 Date of admission: 10/18/22 16:11 Primary care physician: Jodee Yee Admitting Clinician: Celso Plummer MD Consults: RT Attending Physician on discharge: Faith Alvarez MD Date of Discharge: 10/20/22 DS: Diagnosis Discharge Diagnosis (1) Pulmonary embolism: Status: Acute Problem details: - diagnosed 10/18, recent ankle fracture and immobilization - Eliquis 10/18 (2) Chronic idiopathic thrombocytopenia: Status: Acute Problem details: - Sees Hematology as an outpatient, stable - no evidence of acute bleeding during stay and d/c platelets >100 (3) Hemochromatosis: Status: Acute Problem details: - quiescent (4) History of fracture of right ankle: Status: Acute Problem details: - routine outpatient Ortho f/u (5) Chest pain: Status: Acute Problem details: - left sided, source unclear (presumably pleurisy from effusion). No acute changes on EKG or telemetry, troponins negative throughout stay - unfortunately, unable to take NSAIDs given anticoagulation + thrombocytopenia, prn oral Oxycodone not helpful; transitioned to oral Dilaudid with good relief - TTE 10/19 reassuring with results below: Final Impressions: 1. Technically limited exam. 2. LVEF estimate 60-65%. Normal LV size and wall thickness. 3. RV not well seen. Global function appears preserved. 4. No significant valvular abnormalities. 5. Normal PA systolic and RA pressure estimates. (6) Pneumonia: Status: Acute Problem details: - notes having this approximately 1 month ago; possible recurrence on imaging. Notably, procalcitonin negative - on ceftriaxone and doxycycline (10/18), will complete course of Doxycycline as an outpatient DS: Summary Hospital Course Hospital Course: Keehsa is a very pleasant 71-year-old female with a recent R sided ankle fracture, presented to the hospital on 10/18 with dyspnea and subsequently diagnosed with a small right-sided PE. Eliquis initiated. Patient also noted to have a left-sided pleural effusion and possible recurrence of recent left-sided pneumonia. Procalcitonin was negative and she remained afebrile. She was treated with ceftriaxone and doxycycline and will complete a course of doxycycline as an outpatient; remained stable on room air throughout stay. There is a fair amount of discomfort over the left chest, presumed to be pleurisy given reassuring EKG, negative troponins, reassuring TTE. Pain improved during stay and patient felt comfortable discharging home with close PCP follow-up on 10/20. Comorbidities noted above, remained stable throughout stay. Status at Discharge Functional status at discharge: independent ambulation Overall status at discharge: patient is progressing back to baseline Time Spent with Patient Time attestation: Total time spent providing and/or coordinating discharge services: Time spent: Greater than 30 minutes Specific discharge activities: Medication reconciliation, documentation, patient Education Exam Narrative: Exam Narrative: GEN: Alert and oriented, nontoxic in appearance, able to move comfortably in her bed HEENT: EOMIs bilaterally, no scleral icterus CV: RRR, No concerning murmurs R: LCTA bilaterally without concerning wheezing, + rales left base Ext: wwp, no concerning edema Skin: No concerning skin lesions or rashes on exposed skin Neuro: Nonfocal Psych: Appropriate Const: Vital Signs, click to edit/add: Vital Signs - 24 hr 10/19/22 15:00 10/19/22 15:00 10/19/22 19:00 Temperature 97.7 F 98.2 F Pulse Rate 103 H Pulse Rate [Right Pulse Oximeter] 91 98 Respiratory Rate 18 18 Blood Pressure [Le ft Arm] 121/73 117/73 Blood Pressure [Ri ght Arm] Pulse Oximetry 91 90 Oxygen Delivery Me thod Room Air Room Air 10/19/22 23:00 10/19/22 23:38 10/20/22 02:38 Temperature 98.1 F Pulse Rate 87 Pulse Rate [Right Pulse Oximeter] 90 83 Respiratory Rate 18 16 Blood Pressure [Le ft Arm] 106/67 Blood Pressure [Ri ght Arm] 129/71 Pulse Oximetry 92 90 Oxygen Delivery Me thod Room Air Room Air 10/20/22 07:00 10/20/22 07:00 10/20/22 07:00 Temperature 98.5 F Pulse Rate 84 Pulse Rate [Right Pulse Oximeter] 93 93 Respiratory Rate 16 16 Blood Pressure [Le ft Arm] 140/83 H Blood Pressure [Ri ght Arm] Pulse Oximetry 92 Oxygen Delivery Me thod Room Air 10/20/22 11:12 Temperature 98.5 F Pulse Rate 84 Pulse Rate [Right Pulse Oximeter] Respiratory Rate 16 Blood Pressure [Le ft Arm] Blood Pressure [Ri ght Arm] Pulse Oximetry Oxygen Delivery Me thod DS: Data Data Completed and Pending Completed studies during hospitalization: IMPRESSION: Small right-sided pulmonary embolus involving a right lower lobe segmental branch and right upper lobe segmental branch. Left lower lobe linear opacities likely atelectasis and resolving pneumonia. Small left-sided pleural effusion with adjacent compressive atelectasis. Please note that all CT scans at this facility use dose modulation, iterative reconstruction, and/or weight-based dosing when appropriate to reduce radiation dose to as low as reasonably achievable. Dictated by John Briones MD @ 10/18/2022 3:34:07 PM Labs on day of discharge: Labs from last 24 hours 10/20/22 06:10 WBC 3.77 L RBC 3.76 L Hgb 12.2 Hct 35.6 MCV 95 MCH 32 MCHC 34 RDW Coeff of Patrick 12.8 Plt Count 118 L Neut % (Auto) 53.0 Lymph % (Auto) 34.2 Bay % (Auto) 8.0 Eos % (Auto) 3.7 Baso % (Auto) 0.8 Neut # (Auto) 2.00 Lymph # (Auto) 1.30 Bay # (Auto) 0.30 Eos # (Auto) 0.10 Baso # (Auto) 0.00 Sodium 139 Potassium 3.3 L Chloride 102 Carbon Dioxide 31 BUN 9 Creatinine 0.7 Estimated Creat Clear 45.76 Estimated GFR 92 Glucose 105 Calcium 9.0 Total Bilirubin 0.6 AST 28 ALT 23 Alkaline Phosphatase 118 Troponin I < 0.01 L Total Protein 6.7 Albumin 3.6 Procalcitonin 0.08 Preliminary micro results at discharge 10/18/22 13:09 Blood Culture - Preliminary Blood NO GROWTH AFTER 24 HOURS 10/18/22 13:25 Blood Culture - Preliminary Blood NO GROWTH AFTER 24 HOURS Discharge Plan Discharge Disposition: Home, Self-Care Date of Admission: 10/18/22 16:11 Attending Provider on Discharge: Faith Alvarez Primary Care Provider: Jodee Yee Condition: Improved Anticipated Discharge Date/Time: 10/20/22 10:26 Discharge Medications: New doxycycline hyclate 100 mg Capsule 100 mg PO BID 5 Days Qty: 10 0RF hydromorphone 2 mg Tablet 2 mg PO Q8H PRNQty: 14 0RF Eliquis 5 mg Tablet 10 mg PO Q12H Qty: 60 0RF Rx Instructions: 2 tabs po BID x 4 more days, on 10/25 start 1 tab (5mg) po BID Continued rosuvastatin 40 mg tablet 40 mg PO DAILY gabapentin 600 mg tablet 300 - 600 mg PO BID Rx Instructions: 300 MG IN AFTERNOON 1200 MG AT BEDTIME citalopram 40 mg tablet 40 mg PO DAILY Discontinued hydrocodone-acetaminophen 5-325 mg tablet 1 tab PO Q4-6H PRN (Reason: pain) Qty: 15 0RF No Action (DME) Cam Walker Misc See Rx Instructions .ROUTE .MEDSUPPLY Qty: 1 0RF Rx Instructions: As directed (DME) Crutches- Adult Misc See Rx Instructions .ROUTE .MEDSUPPLY Qty: 1 0RF Rx Instructions: As directed Discharge Orders: Discharge Order (Routine); Ordered 10/20/22 Ordered By: Faith Alvarez Patient Education: Doxycycline (By mouth), Hydromorphone (By mouth), Apixaban (By mouth) (Eliquis), Pulmonary Embolism (DC) Additional Instructions: See Dr. Yee next week, new medications sent to [facility]: - antibiotic to complete course for pneumonia - blood thinner (2 tabs twice/day for 4 more days, then 1 tab twice/day); you'll be on this for at least 3 months, anything further TBD by Dr. Yee and Hematology - pain medication (no driving on this) Activity Level: Light activity Activity Detail: per Ortho Discharge Diet: Regular Follow Up Appointments: Jodee Yee [Primary Care Provider] - 10/26/22 9:10 am ([facility] for follow up and PE check.) Forms: [employer] Info Instructions
== END 2022-10-20 11:29 | disposition home or self-care (01) ==
LOC: ED 14:55 → MEDSURG 16:12
PROVIDERS: Family Medicine; Admitting Provider Hospitalist; Emergency Provider Family Medicine; PCP Internal Medicine; Visit Provider Hospitalist
DX: I26.99 Other pulmonary embolism without acute cor pulmonale (principal); Z87.81 Personal history of (healed) traumatic fracture; D69.3 Immune thrombocytopenic purpura; J18.9 Pneumonia, unspecified organism; R07.9 Chest pain, unspecified; E83.119 Hemochromatosis, unspecified
CPT/HCPCS: 36415; 71045; 71260; 80048; 80053; 83880; 84145; 84484; 85025; 85379; 85610; 85730; 86140; 87040; 87631; 93005; 93306; 93970; 96361; 96365; 96366; 96375; 96376; 99285; G0378; A9270; J0696; J1170; J2270; J7030; Q9967

== ENCOUNTER 2024-05-09 10:38 | Outpatient (CLI) | payer MEDICARE, SELFPAY | END 2024-05-09 10:39 | disposition home or self-care (01) | LOC: NFLDUCREF 10:39 | PROVIDERS: PCP Internal Medicine; Visit Provider Nurse Practitioner | DX: R07.1 Chest pain on breathing (principal) | CPT/HCPCS: 85379 ==